=== PATIENT | female | born 1945 | race Caucasian/White ===

== ENCOUNTER 2023-09-02 06:45 | Day surgery (SDC) | payer BC, MEDICARE ==
[2023-09-02] MEDS ORDERED: Midazolam 1 MG/ML 2 ML SDV ONE (08:00)
[2023-09-02] MEDS ORDERED: Propofol 200 MG/20 ML SDV ONE (08:00)
[2023-09-02] MEDS ORDERED: Lidocaine 2% 5 ML SDV ONE (08:01)
[2023-09-02] MEDS ORDERED: Glycopyrrolate 0.2 MG/ML SDV ONE (08:01)
[2023-09-02] MEDS ORDERED: Lactated Ringers 1,000 ML IV SCH (08:30)
[2023-09-02] MEDS ORDERED: Sodium Chloride 0.9% 10 ML Syringe FLUSH PRN (08:30)
[2023-09-03] MEDS ORDERED: Sugammadex Sodium 200 MG/2 ML VIAL ONE (10:11)
== END 2023-09-02 10:24 | disposition home or self-care (01) ==
LOC: KA.SDS 06:45
PROVIDERS: ATTEND Family Medicine
DX: D12.6 Benign neoplasm of colon, unspecified (principal); K44.9 Diaphragmatic hernia without obstruction or gangrene; K64.8 Other hemorrhoids; K21.9 Gastro-esophageal reflux disease without esophagitis; I10 Essential (primary) hypertension; F33.42 Major depressive disorder, recurrent, in full remission; R63.4 Abnormal weight loss; Z68.23 Body mass index [BMI] 23.0-23.9, adult; Z79.899 Other long term (current) drug therapy
CPT/HCPCS: 00813; 88305; J2250; J2704; J3490; J7120